=== PATIENT | female | born 1940 | race Caucasian/White ===

== ENCOUNTER 2024-02-12 16:58 | Emergency (ER) | payer MEDICARE, OTHER, SELFPAY ==
[2024-02-12 17:01] VITALS: BP 189/94
--- NOTE | 2024-02-12 17:06 | ED.PDOC.TRB ---
ED Provider Triage
-
Patient seen by provider in Triage?: Seen in Triage
A medical screening examination has been initiated by a qualified medical provider. Based on the assessment performed at this time, it has been determined that an emergent medical condition may exist and the patient has been informed that further
medical evaluation and possible additional diagnostic testing may be needed.
HPI: This is a medical evaluation conducted in person to initiate diagnostic evaluation and provide initial therapeutics. Please see further documentation by the treating clinician.
83 y/o F with ho chroic si joint pain
pain not controlled with advil
called orthopedist who oculdnt get her in
no leg weakness, numbness, incontinence
no falls
no distress
vitals stable
nontoxic
strength in the RLE
will start with screening xrays as she has not had any recently
--- NOTE | 2024-02-12 19:54 | ED.GENMED ---
History of Present Illness
General
Chief Complaint: Musculo-Skeletal Complaint
Time Seen by Provider: 02/12/24 18:58
History of Present Illness
History of Present Illness:
83-year-old female presents to the emergency department for evaluation of right-sided 'sciatica' ongoing for the past 3 to 4 days. She states she has flareups of this exact type of pain 2-3 times per year and typically improves with a 'cortisone
shot'. She has been taking Advil without relief. She is able to ambulate with pain. Pain is localized to the right superior gluteal region and radiates down the right leg. No associated fevers or chills.
Review of Systems
Review of Systems
Allergies reviewed?: Yes
All Other Systems: ROS reviewed and negative except as documented in HPI and ROS
Phy Exam
Physical Exam
Physical Exam:
GEN: Well appearing, NAD, WDWN
HEENT: Oral mucosa moist, no scleral icterus
Cardiac: Regular rate
Lung: No respiratory distress, no tachypnea
MSK: No gross deformity or injuries. Right hip range of motion is normal, pain worse with external rotation
Skin: Good color, no pallor or jaundice, no rashes
Neuro: AO x3, moves all extremities freely
Psych: Calm, cooperative
Course
Orders/Labs/Results
Orders:
Orders
02/12/24 17:06
Hip, Right 2-3 Views [CR Hip - RT w/wo Pel 2-3 Vw*] Urgent
Comment:
Reason For Exam: right buttockp ain
Include a pelvis x-ray?: Yes
Lumbar Spine Complete, 4 View [CR Lumbar Spine Comp Min 4 Vw*] Urgent
Comment:
Reason For Exam: right lower back pain, no trauma
02/12/24 20:01
Triamcinolone Injectable [Kenalog-40] 40 mg IM NOW STA
Vital Signs
Initial and Last Documented VS:
Initial Vital Signs
Temp Pulse Resp BP Pulse Ox
98.1 F 98 20 189/94 98
02/12/24 17:01 02/12/24 17:01 02/12/24 17:01 02/12/24 17:01 02/12/24 17:01
Last Documented Vital Signs
Temp Pulse Resp BP Pulse Ox
98.1 F 98 20 189/94 98
02/12/24 17:01 02/12/24 17:01 02/12/24 17:01 02/12/24 17:01 02/12/24 17:01
MDM/Problems Addressed
MDM/Problems Addressed:
Patient requesting a single shot of 'cortisone' as this has worked in the past. This request was obliged with 1 IM injection of Kenalog. Recommend outpatient orthopedic follow-up. She has no red flag symptoms concerning for cauda equina. X-rays
independently interpreted by myself show degenerative changes with no acute osseous abnormality
*Critical Care Note
Total Time (30-74mins, 75-104mins- exclusive of procedures): Not Applicable
ED Attending Note
-
Portions of this chart may have been created with voice recognition software.� Occasional wrong word or��sound alike� substitutions may have occurred due to the inherent limitations of voice recognition software.
Discharge Plan
Departure
Patient Disposition: Home (Routine Discharge)
Date of Disposition: 02/12/24
Time of Disposition: 19:55
Patient with high blood pressure during this ER visit?: Yes
Discharge Problem:
Acute right lumbar radiculopathy
Instructions: Radiculopathy (DC)
Referrals:
Justino Carlos, [Non-Admitting Privileges] -
Shanda Mckee MD [Family Provider] -
Interventions
Interventions:
*Risk Screen - Suicide Last Done: 02/12/24 17:01
*General Assessment Last Done: 02/12/24 17:01
*Neglect/Abuse Screening Last Done: 02/12/24 17:01
ED- Fall Risk Assessment Last Done: 02/12/24 20:19
*ED COVID-19 Vaccine History Last Done: 02/12/24 20:19
*Nursing Disposition Last Done: 02/12/24 20:19
ED-Musculoskeletal Assessment Last Done: 02/12/24 20:19
Discharge Date and Time
Discharge Date/Time: 02/12/24 20:19
Print Language: GHANAIAN
[2024-02-12] MEDS: KENALOG-40 40 MG IM (20:14)
== END 2024-02-12 20:19 | disposition home or self-care (01) ==
LOC: EMR 16:58
PROVIDERS: EMERGENCY PHYSICIAN Student in an Organized Health Care Education/Training Program; FAMILY PHYSICIAN Family Medicine
DX: M54.16 Radiculopathy, lumbar region (principal); R03.0 Elevated blood-pressure reading, without diagnosis of hypertension
CPT/HCPCS: 99284; 96372; 72110; 73502

== ENCOUNTER → 2024-03-25 14:40 | Outpatient (REF) | payer MEDICARE, OTHER, SELFPAY | LOC: PAVMRI 14:40 | PROVIDERS: ATTENDING PHYSICIAN Physician Assistant; FAMILY PHYSICIAN Family Medicine | DX: M54.16 Radiculopathy, lumbar region (principal); M79.18 Myalgia, other site | CPT/HCPCS: 72148; 72195 ==